=== PATIENT | female | born 1995 | race Caucasian/White ===

== ENCOUNTER 2016-10-09 23:08 | Emergency (ER) | payer MEDICAID, OTHER ==
[~2016-10-09] VITALS: Ht 152.4 cm; Wt 54.5 kg
[2016-10-10 00:25] VITALS: Ht 152.4 cm; Wt 54.5 kg
--- NOTE | 2016-10-10 01:06 | RADRPT ---
PROCEDURE: CT Brain without contrast. CLINICAL INDICATION: Trauma, headache TECHNIQUE: A CT of the brain was performed utilizing axial imaging from the skull base through the vertex without IV contrast. Multiplanar reformatted images were made. Images were reviewed on a [employer] workstation. The CTDIvol is 45.01 mGy and the DLP is 720.23 mGycm. One or more the following dose reduction techniques were utilized: Automated exposure control, adjus tment of the mA and / or kV according to patient's size, or use of iterative reconstruction techniqu e. COMPARISON: None FINDINGS: There is no intracranial hemorrhage, mass effect, or midline shift. No extra-axial fluid collection is seen. The ventricles and sulci are normal in size and configuration. The density of the brain is normal, and the romo white matter differentiation appears well-preserved. No skull fracture seen. Mild mucosal thickening in right maxillary sinus and minimal mucosal thickening in left maxillary s inus. IMPRESSION: 1. No evidence of acute intracranial pathology. 2. The brain is normal in appearance. RPTAT: HJES .Robert Smith MD, MD Date Time Electronically viewed and signed by .Robert Smith MD, on 10/10/2016 01:06 .S/
--- NOTE | 2016-10-10 03:44 | ERD ---
ER Documentation Chief Complaint Date/Time DATE: 10/10/16 TIME: 03:42 Chief Complaint FOUND SLEEPING ON [place], INTOXICATED, HAPPY AFFECT HPI This 21-year-old homeless female was found sleeping in a person's yard prior to arrival. The patient states that she is drunk. She says she did not fall or have any trauma. She has no headache neck pain chest pain back pain abdominal pain or any physical complaints whatsoever. She says she feels fine and just wants to take a nap. ROS All systems reviewed and are negative except as per history of present illness. Allergies Allergies: Coded Allergies: No Known Allergy (Unverified , 10/20/13) PMhx/Soc Medical and Surgical Hx: pt denies Medical Hx, pt denies Surgical Hx Hx Alcohol Use: No Hx Substance Use: Yes (SUSPECTED) Hx Tobacco Use: No Smoking Status: Never smoker FmHx Family History: No coronary disease Physical Exam Vitals Vital Signs Date Time Temp Pulse Resp B/P Pulse Ox O2 Delivery O2 Flow Rate FiO2 10/10/16 00:25 98.9 89 18 124/76 99 Physical Exam Const: [Well-developed, well-nourished, cooperative and smells like alcohol ] Head: [Atraumatic, normocephalic] Eyes: [Normal Conjunctiva, PERRLA, EOMI, normal sclera, no nystagmus] ENT: [Normal External Ears, Nose and Mouth, moist mucus membranes.] Neck: [Full range of motion. No meningismus, no lymphadenopathy.] Resp: [Clear to auscultation bilaterally, no wheezing, rhonchi, rales] Cardio: [Regular rate and rhythm, no murmurs, S1 S2 present] Abd: [Soft, non tender x 4, non distended. Normal bowel sounds, no guarding or rebound, no pulsitile abdominal masses or bruits] Skin: [No petechiae or rashes, no ecchymosis , no maculopapular rash] Back: [No midline or flank tenderness] Ext: [No cyanosis, or edema, FROM x 4, normal inspection, neurovascularly intact x 4] Neur: [Awake and alert, STR 5/5 x 4, sensation intact x 4, no focal findings, cerebellum intact] Psych: [Normal Mood and Affect] Procedures/MDM PROCEDURE: CT Brain without contrast. CLINICAL INDICATION: Trauma, headache TECHNIQUE: A CT of the brain was performed utilizing axial imaging from the skull base through the vertex without IV contrast. Multiplanar reformatted images were made. Images were reviewed on a [employer] workstation. The CTDIvol is 45.01 mGy and the DLP is 720.23 mGycm. One or more the following dose reduction techniques were utilized: Automated exposure control, adjustment of the mA and / or kV according to patient's size, or use of iterative reconstruction technique. COMPARISON: None FINDINGS: There is no intracranial hemorrhage, mass effect, or midline shift. No extra- axial fluid collection is seen. The ventricles and sulci are normal in size and configuration. The density of the brain is normal, and the romo white matter differentiation appears well-preserved. No skull fracture seen. Mild mucosal thickening in right maxillary sinus and minimal mucosal thickening in left maxillary sinus. IMPRESSION: 1. No evidence of acute intracranial pathology. 2. The brain is normal in appearance. RPTAT: HJES .Robert Smith MD, MD Date Time Electronically viewed and signed by .Robert Smith MD, MD on 10/10/2016 01:06 .S/ CC: NITHYA OSORIO DO With the patient rest and sleep in the ER for a couple hours later so breath will discharge her when she is able to ambulate in the ER without any difficulty and is awake and alert oriented Departure Diagnosis: Primary Impression: Alcohol intoxication Complication of substance-induced condition: uncomplicated Qualified Code: F10.120 - Alcohol intoxication, uncomplicated Condition: Stable Patient Instructions: Alcohol Intoxication NITHYA OSORIO DO Oct 10, 2016 03:44
== END 2016-10-10 03:52 | disposition home or self-care (01) ==
LOC: E/R 23:08
DX: F10.120 Alcohol abuse with intoxication, uncomplicated (principal); R40.2142 Coma scale, eyes open, spontaneous, at arrival to emergency department; R40.2252 Coma scale, best verbal response, oriented, at arrival to emergency department; R40.2362 Coma scale, best motor response, obeys commands, at arrival to emergency department; R51 Headache
CPT/HCPCS: 70450; Z7502